=== PATIENT | male | born 1960 | race Caucasian/White ===

== ENCOUNTER → 2020-02-18 | Outpatient (CLI) | payer BC ==
--- NOTE | 2020-02-18 16:17 | RADIOLOGY REPORT (SQ) ---
EXAM DESCRIPTION: MRI LUMBAR SPINE WITHOUT IMAGES COMPLETED DATE/TIME: 02/18/2020 4:04 pm REASON FOR STUDY: M54.5 LOW BACK PAIN M54.5 LOW BACK PAIN COMPARISON: None. TECHNIQUE: Sagittal and Axial imaging includes T1, T2, STIR and gradient echo sequences. Coronal T2/ HASTE imaging. LIMITATIONS: Motion. Body habitus. FINDINGS: VISUALIZED UPPER ABDOMEN: Limited evaluation. No acute or suspicious findings suggested. SEGMENTATION: No transitional anatomy. The lowest well-developed disc space is labeled L5-S1. ALIGNMENT: Anatomic. VERTEBRAE: Intact. BONE MARROW: Normal. No marrow replacement or reactive changes. DISC SIGNAL: Desiccation L3- 4 through L5-S1. POSTERIOR ELEMENTS: Generally intact. No pars defect evident. HARDWARE: None in the spine. CORD AND CONUS: Normal in size and signal intensity. Conus at the appropriate level. SOFT TISSUES: No aortic aneurysm seen. No bulky retroperitoneal adenopathy or mass. No paraspinal mas s or fluid. L1-L2: No significant spinal stenosis or exit foraminal stenosis. L2-L3: No significant spinal stenosis or exit foraminal stenosis. L3-L4: Mild spinal stenosis due disc bulge and facet arthropathy. L4-L5: Moderate spinal stenosis due to small central disc herniation and facet arthropathy. Moderate neural foraminal narrowing bilaterally. L5-S1: Mild spinal stenosis due to small central disc herniation and facet arthropathy. Moderate merna ral foraminal narrowing bilaterally. LOWER THORACIC: Incompletely imaged. No stenosis seen. SACRUM: Visualized upper sacrum intact. OTHER: No other significant findings. IMPRESSION: Facet arthropathy. Small disc herniations at L4-5 and L5-S1. Moderate spinal stenosis L4-5. TECHNICAL DOCUMENTATION: JOB ID: [id number] 2010 [employer]- All Rights Reserved Reading location - IP/workstation name: [email or web address]
== END ==
LOC: RAD 15:00
PROVIDERS: ATTEND Orthopaedic Surgery
DX: M54.5 Low back pain (principal)
CPT/HCPCS: 72148

== ENCOUNTER 2020-09-12 09:26 | Emergency (ER) | payer BC ==
[2020-09-12] MEDS ORDERED: ONDANSETRON HCL INJ/PF 4 MG/2 ML SDV IV ONE ×2 (10:28→13:29)
[2020-09-12] MEDS ORDERED: MORPHINE SULFATE 10 MG/ML INJ IV ONE ×2 (10:28→13:28)
--- NOTE | 2020-09-12 10:30 | ER Document Report ---
ED Medical Screen (RME) - General Chief Complaint: Abdominal Pain Stated Complaint: ABDOMINAL PAIN Time Seen by Provider: 09/12/20 10:27 Primary Care Provider: POOL BILLINGS MD [Primary Care Provider] - Follow up as needed Mode of Arrival: Wheelchair Information source: Patient Notes: 60-year-old male patient presented to the emergency department with severe abdominal pain. Patient reports pain is in the upper abdomen and radiates straight through to his back. He states the pain is the worst pain he is ever had. He reports sudden onset last night at 10 PM. He reports associated diaphoresis but denies any fever, chills, nausea or vomiting. He does report having a similar pain about a week ago that resolved on its own. He states the pain has been constant since it began last night. Patient has a umbilical hernia but denies any previous abdominal surgeries. Charge nurse made aware of patient in department and request for immediate bed placement. I have greeted and performed a rapid initial assessment of this patient. A comprehensive ED assessment and evaluation of the patient, analysis of test results and completion of the medical decision making process will be conducted by additional ED providers. I have specifically instructed the patient or family members with the patient to immediately return to any nursing staff should anything change in the patient's condition or with their chief complaint. Physical Exam - Vital signs Vitals: Temp Pulse Resp BP Pulse Ox 97.4 F 71 20 139/97 H 96 09/12/20 09:36 09/12/20 09:36 09/12/20 09:36 09/12/20 09:36 09/12/20 09:36 Course - Vital Signs Vital signs: Temp Pulse Resp BP Pulse Ox 97.4 F 71 20 139/97 H 96 09/12/20 09:36 09/12/20 09:36 09/12/20 09:36 09/12/20 09:36 09/12/20 09:36 Doctor's Discharge - Discharge Referrals: POOL BILLINGS MD [Primary Care Provider] - Follow up as needed
[2020-09-12 10:59] LABS: ABSOLUTE BASOPHILS # (AUTO) 0.1 10^3/uL (0.0-0.2); ABSOLUTE LYMPHOCYTES (AUTO) 1.5 10^3/uL (0.5-4.7); ABSOLUTE MONOCYTES (AUTO) 0.8 10^3/uL (0.1-1.4); ABSOLUTE NEUT (AUTO) 7.3 10^3/uL (1.7-8.2); BASOPHILS % (AUTO) 1.2 % (0-2); EOSINOPHILS % (AUTO) 0.2 % (0-6); HEMATOCRIT 46.3 % (37.9-51.0); HEMOGLOBIN 15.8 g/dL (13.5-17.0); LYMPHOCYTES % (AUTO) 15.5 % (13-45); MEAN CORPUSCULAR HEMOGLOBIN 29.6 pg (27.0-33.4); MEAN CORPUSCULAR HGB CONC 34.2 g/dL (32.0-36.0); MEAN CORPUSCULAR VOLUME 87 fl (80-97); PLATELET COUNT 269 10^3/uL (150-450); RED BLOOD COUNT 5.35 10^6/uL (4.35-5.55); RED CELL DISTRIBUTION WIDTH 13.2 % (11.5-14.0); SEGMENTED NEUTROPHILS % (AUTO) 75.1 % (42-78); TOTAL CELLS COUNTED % (AUTO) 100 %; WHITE BLOOD COUNT 9.8 10^3/uL (4.0-10.5)
[2020-09-12 11:15] LABS: ALBUMIN 4.1 g/dL (3.5-5.0); ALKALINE PHOSPHATASE 105 U/L (38-126); ANION GAP 7 (5-19); ASPARTATE AMINO TRANSFERASE 31 U/L (17-59); BILIRUBIN,DIRECT 0.2 mg/dL (0.0-0.4); BILIRUBIN,TOTAL 0.4 mg/dL (0.2-1.3); BLOOD UREA NITROGEN 18 mg/dL (7-20); CALCIUM 9.2 mg/dL (8.4-10.2); CARBON DIOXIDE 29 mmol/L (22-30); CHLORIDE 103 mmol/L (98-107); GLUCOSE 134 mg/dL (75-110); TOTAL PROTEIN 7.3 g/dL (6.3-8.2)
[2020-09-12] MEDS ORDERED: NORMAL SALINE 1000 ML 1,000 ML IV ONE (11:26)
--- NOTE | 2020-09-12 12:50 | RADIOLOGY REPORT (SQ) ---
EXAM DESCRIPTION: CTA CHEST; CTA ABDOMEN/PELVIS W WO IMAGES COMPLETED DATE/TIME: 09/12/2020 9:19 am REASON FOR STUDY: UPPER ABD/BACK PAIN, EVAL FOR AORTIC DISSECTION COMPARISON: None. TECHNIQUE: CT scan of the chest, abdomen, pelvis performed with intravenous contrast using helical s el technique with dynamic intravenous contrast injection using aortic dissection protocol. Image s reviewed with lung, soft tissue, and bone windows. Reconstructed coronal and sagittal MPR images re viewed. All images stored on PACS. Advanced 3D imaging as volume rendering, MIPS, SSD performed? yes All CT scanners at this facility use dose modulation, iterative reconstruction, and/or weight based d osing when appropriate to reduce radiation dose to as low as reasonably achievable (ALARA). [facility]: Dose Right [facility]: CareDose [facility]: Dose Right [facility]: Teradose 4D [facility]: [employer] CONTRAST TYPE AND DOSE: contrast/concentration: Isovue 350.00 mmol/ml; Total Contrast Delivered: 100 .0 ml; Total Saline Delivered: 90.0 ml RENAL FUNCTION: Creatinine 0.68 LIMITATIONS: None. FINDINGS: AORTA AND VESSELS: No thoracic or abdominal aortic dissection or aneurysm. Arch vessels d emonstrate normal anatomic configuration. The celiac trunk, superior mesenteric and inferior mesente day arteries are patent. Bilateral renal arteries are patent. 2 renal arteries are noted on the lef t. Visualized pelvic runoff appears patent. There is some mild scattered atherosclerotic plaque pre dominantly in the lower abdominal aorta and common and internal iliac arteries. LUNGS AND PLEURA: Some mild bilateral dependent opacities probably representing atelectasis. Cannot exclude superimposed infection. There is a solid nodule in the right lower lobe superiorly measuring up to 1.0 cm (series 4, image 35). Calcified granulomas in the right upper lobe. No pleural effusi on or pneumothorax. HEART: No pericardial effusion. Trace coronary artery calcifications. PULMONARY ARTERIES: No central pulmonary embolism. The contrast bolus was optimized for the assessme nt of the pulmonary arteries. HILAR AND MEDIASTINAL STRUCTURES: Some scattered small and borderline lymph nodes are probably reacti ve. HARDWARE: None in the chest. THYROID AND OTHER SOFT TISSUES: No masses. No adenopathy. LIVER: Hepatic steatosis with focal sparing adjacent to the gallbladder. SPLEEN: Normal size. No focal lesions. PANCREAS: No masses. No significant calcifications. No adjacent inflammation or peripancreatic fluid collections. Pancreatic duct not dilated. GALLBLADDER: Cholelithiasis. ADRENAL GLANDS: No significant masses or asymmetry. RIGHT KIDNEY AND URETER: No mass, calculi or urinary tract obstruction. LEFT KIDNEY AND URETER: No mass, calculi or urinary tract obstruction. RETROPERITONEUM: No retroperitoneal adenopathy, hemorrhage or masses. BOWEL AND PERITONEAL CAVITY: No masses or inflammatory changes. No free fluid or peritoneal masses. Colon diverticulosis without diverticulitis. Much of the bowel is under distended, degrading evaluat ion of wall thickness. APPENDIX: Normal. PELVIS: No mass. Urinary bladder is unremarkable. ABDOMINAL WALL: Multiple fat containing ventral hernias. BONY STRUCTURES: No significant or acute findings. 3-D IMAGING: Confirms the above findings. OTHER: No other significant finding. IMPRESSION: 1. No aortic aneurysm or dissection. 2. Some mild bilateral opacities probably represent atelectasis, though superimposed infection is no t excluded. 3. Right lower lobe solid pulmonary nodule. Recommend follow-up chest CT in [address] and b iopsy could also be considered. 4. Hepatic steatosis. 5. Cholelithiasis. 6. Colon diverticulosis. COMMENT: FLEISCHNER CRITERIA FOR FOLLOW-UP OF PULMONARY NODULES Incidentally detected new nodules in persons 35 or older. HIGH RISK: History of smoking or other known risk factors. >8 mm single solid nodule: LOW and HIGH RISK: consider CT, PET/CT or biopsy at 3 mo. TECHNICAL DOCUMENTATION: JOB ID: [id number] Quality ID # [id number]: Final reports with documentation of one or more dose reduction techniques (e.g., Au tomated exposure control, adjustment of the mA and/or kV according to patient size, use of iterative reconstruction technique) 2010 [employer]- All Rights Reserved Reading location - IP/workstation name: [email or web address]
--- NOTE | 2020-09-12 13:23 | RADIOLOGY REPORT (SQ) ---
EXAM DESCRIPTION: U/S ABDOMEN COMPLETE W/DOPPLER IMAGES COMPLETED DATE/TIME: 09/12/2020 1:05 pm REASON FOR STUDY: abd pain/radiates to back COMPARISON: None. TECHNIQUE: Dynamic and static grayscale images acquired of the abdomen and recorded on PACS. Additio nal selected color Doppler and spectral images recorded. Note: Exam does not meet criteria for a complete duplex/doppler study LIMITATIONS: Study limited due to acoustical interference from fat or from air in the bowel. FINDINGS: PANCREAS: Obscured. LIVER: Echotexture is coarse with increased echogenicity consistent with fatty infiltration. LIVER VASCULATURE: Normal directional flow of the main portal vein and hepatic veins. GALLBLADDER: Gallstone(s). No pericholecystic fluid. No wall thickening. ULTRASOUND-DETECTED COURTNEY'S SIGN: Negative. INTRAHEPATIC DUCTS AND COMMON DUCT: CBD and intrahepatic ducts normal caliber. No filling defects. INFERIOR VENA CAVA: Normal flow. AORTA: No aneurysm. RIGHT KIDNEY: Normal size. Normal echogenicity. No solid or suspicious masses. No hydronephros is. No calcifications. LEFT KIDNEY: Normal size. Normal echogenicity. No solid or suspicious masses. No hydronephrosi s. No calcifications. SPLEEN:Normal size. No solid masses. PERITONEAL AND PLEURAL SPACES: No ascites or effusions. OTHER: No other significant finding. IMPRESSION: Cholelithiasis. No evidence of acute cholecystitis. TECHNICAL DOCUMENTATION: JOB ID: [id number] 2010 [employer]- All Rights Reserved Reading location - IP/workstation name: [email or web address]
[2020-09-12 13:37] LABS: APPEARANCE,URINE CLEAR; BILIRUBIN,URINE NEGATIVE (NEGATIVE); COLOR,URINE YELLOW; GLUCOSE, URINE NEGATIVE (NEGATIVE); KETONES,URINE NEGATIVE (NEGATIVE); LEUKOCYTE ESTERASE,URINE NEGATIVE (NEGATIVE); NITRITE,URINE NEGATIVE (NEGATIVE); PROTEIN,URINE NEGATIVE (NEGATIVE); UROBILINOGEN,URINE NEGATIVE mg/dL (<2.0)
[2020-09-12 13:43] LABS: URINE SPECIFIC GRAVITY > 1.060
[2020-09-12 13:51] LABS: URINE AMPHETAMINES SCREEN NEGATIVE; URINE BARBITURATES SCREEN NEGATIVE; URINE BENZODIAZEPINES SCREEN NEGATIVE; URINE COCAINE SCREEN NEGATIVE; URINE METHADONE SCREEN NEGATIVE; URINE PHENCYCLIDINE SCREEN NEGATIVE
[2020-09-12 13:56] LABS: URINE MARIJUANA (THC) SCREEN UNCONFIRMED POSITIVE
--- NOTE | 2020-09-12 14:32 | ER Document Report ---
Entered by WILMA ESCOBEDO SCRIBE 09/12/20 1058 Acting as scribe for:JESUS PEREZ MD ED General - General Chief Complaint: Abdominal Pain Stated Complaint: ABDOMINAL PAIN Time Seen by Provider: 09/12/20 10:27 Primary Care Provider: POOL BILLINGS MD [ACTIVE STAFF] - Follow up as needed Mode of Arrival: Wheelchair Information source: Patient Notes: This 60 year old male patient presents to the emergency department today with complaints of upper abdominal pain that radiates through to his back. Patient states this has occurred before 4-5 months ago and a week ago, resolving by itself without visiting his physician. Patient reports a MRI around 4-5 months ago for his hernia, told he has gallstones, and cannot give any details. Patient denies surgical history, or history of DM, HTN, heart attacks, or strokes. Patient reports history of sciatic nerve problems to his bilateral lower extremities, visits a Chiropractor, and visited pain management but was told he had to lose weight to be accepted. Patient states he does not take any regular medications, reports history of high cholesterol, and only takes a daily aspirin. Denies nausea, vomiting or diarrhea, and last bowel movement was today. Patient states he took a oxycodone around 9.5 hours [employer] that he had left over from his chronic back pain. - Related Data Allergies/Adverse Reactions: No Known Allergies Allergy (Verified 09/12/20 10:55) Past Medical History - General Information source: Patient - Social History Smoking Status: Never Smoker Cigarette use (# per day): No Lives with: Family Family History: Reviewed & Not Pertinent - Past Medical History Cardiac Medical History: Reports: Hx Hypercholesterolemia Denies: Hx Heart Attack, Hx Hypertension Neurological Medical History: Denies: Hx Cerebrovascular Accident Endocrine Medical History: Denies: Hx Diabetes Mellitus Type 1, Hx Diabetes Mellitus Type 2 Past Surgical History: Reports: None Review of Systems - Review of Systems Constitutional: No symptoms reported EENT: No symptoms reported Cardiovascular: No symptoms reported Respiratory: No symptoms reported Gastrointestinal: See HPI, Abdominal pain, Last bowel movement - today. denies: Diarrhea, Nausea, Vomiting Genitourinary: No symptoms reported Male Genitourinary: No symptoms reported Musculoskeletal: No symptoms reported Skin: No symptoms reported Hematologic/Lymphatic: No symptoms reported Neurological/Psychological: No symptoms reported -: Yes All other systems reviewed and negative Physical Exam - Vital signs Vitals: Temp Pulse Resp BP Pulse Ox 97.4 F 71 20 139/97 H 96 09/12/20 09:36 09/12/20 09:36 09/12/20 09:36 09/12/20 09:36 09/12/20 09:36 - General Notes: Alert and talking. Mild to moderate distress. - HEENT Head: Normocephalic, Atraumatic Eyes: Normal Pupils: PERRL - Respiratory Respiratory status: No respiratory distress Chest status: Nontender Breath sounds: Normal Chest palpation: Normal - Cardiovascular Rhythm: Regular Heart sounds: Normal auscultation, S1 appreciated, S2 appreciated Murmur: No - Abdominal Notes: Abdomen is distended, but appears to be chronic. Normal active bowel sounds. Tenderness with palpation to the mid periumbilical region. Ventral hernia to this region. - Extremities General upper extremity: Normal inspection General lower extremity: Normal inspection, Nontender. No: Edema - Neurological Neuro grossly intact: Yes Cognition: Normal Orientation: AAOx4 Betsey Coma Scale Eye Opening: Spontaneous [place] Coma Scale Verbal: Oriented Betsey Coma Scale Motor: Obeys Commands [place] Coma Scale Total: 15 Speech: Normal Sensory: Normal - Psychological Associated symptoms: Normal affect, Normal mood - Skin Skin Temperature: Warm Skin Moisture: Dry Skin Color: Normal Course - Re-evaluation Re-evalutation: 09/12/20 14:20 Patient received IV morphine for abdominal pain. Discussed patient's results with does not risk disclosed needing life-threatening or surgical emergency need. Patient does have ventral hernias which was which was not a new finding. Patient also has gallstones again not a new finding but there is no evidence for acute cholecystitis. Patient does have a pulmonary nodule that is incidental and again patient was already aware that had pulmonary nodule. Because he mentions some asbestosis exposure in the past. - Vital Signs Vital signs: Temp Pulse Resp BP Pulse Ox 97.4 F 71 15 154/82 H 97 09/12/20 09:36 09/12/20 09:36 09/12/20 13:01 09/12/20 13:01 09/12/20 13:01 09/12/20 14:21 Vital signs stable. - Laboratory Results Result Diagrams: 09/12/20 10:38 09/12/20 10:38 Laboratory Results Interpreted: 09/12/20 09/12/20 10:38 13:05 Glucose 134 H Urine Ascorbic Acid 20 H Laboratories unremarkable 09/12/20 14:22 Laboratories. Critical Laboratory Results Reviewed: No Critical Results - Radiology Results Radiology Results Interpreted: 09/12/20 14:22 Abdomen/Pelvis CTA 09/12/20 10:28 IMPRESSION: 1. No aortic aneurysm or dissection. 2. Some mild bilateral opacities probably represent atelectasis, though superimposed infection is not excluded. 3. Right lower lobe solid pulmonary nodule. Recommend follow-up chest CT in [address] and biopsy could also be considered. 4. Hepatic steatosis. 5. Cholelithiasis. 6. Colon diverticulosis. Chest/Abdomen CTA 09/12/20 10:28 IMPRESSION: 1. No aortic aneurysm or dissection. 2. Some mild bilateral opacities probably represent atelectasis, though superimposed infection is not excluded. 3. Right lower lobe solid pulmonary nodule. Recommend follow-up chest CT in [address] and biopsy could also be considered. 4. Hepatic steatosis. 5. Cholelithiasis. 6. Colon diverticulosis. Abdomen Ultrasound 09/12/20 11:24 IMPRESSION: Cholelithiasis. No evidence of acute cholecystitis. Patient had an abdominal/pelvis CTA and the impression shows no aortic aneurysm or dissection opacities and or representing atelectasis in both lungs. Right lower lobe solid nodule is recommended patient follow-up with his primary care doctor regarding further management and monitoring of this recommended he follow-up within 3 months and also have consideration for a biopsy. Cholelithiasis without cholecystitis hepatic steatosis and colon diverticulosis. Abdominal ultrasound shows cholelithiasis but no evidence of any acute cholecystitis. Critical Radiology Results Reviewed: No Critical Results - EKG Interpretation by Me Additional EKG results interpreted by me: 09/12/20 14:24 Twelve-lead EKG shows a normal sinus rhythm rate of 72 PACs noted but no acute ST changes NH interval within normal range QRS within normal range and QT interval within normal range normal axis no evidence for STEMI. Discharge - Discharge Clinical Impression: Ventral hernia with obstruction, without gangrene, Cholelithiasis, Abdominal pain, History of sciatica Disposition: HOME, SELF-CARE Instructions: Abdominal Pain ([facility]), Oral Narcotic Medication ([facility]) Additional Instructions: Gallbladder Disease Your evaluation shows evidence of gallbladder disease. The gallbladder is a pouch under the liver which stores bile. Stones, infection, or irritation of the gallbladder cause attacks of pain. Certain foods -- fats in particular -- may provoke attacks. The usual treatment for gallbladder disease is surgical removal of the ga llbladder -- called a cholecystectomy. You will be referred to a physician qualified to advise you on the best treatment for your problem. Hospitalization is not necessary. Take clear liquids only until you are painfree. After that, you should stay on a low-fat diet, with frequent SMALL meals. Call the doctor or return at once if you develop severe pain, repeated vomiting, fever, or jaundice (a yellow color in the skin and whites of the eyes). Recommend you follow-up with a surgeon regarding further evaluation of your gallbladder disease. Also you should continue as you have been instructed to take Tylenol and ibuprofen along with your pain narcotic medication for better control. Also follow-up with your orthopedic doctor regarding his sciatica. Prescriptions: Oxycodone HCl/Acetaminophen [Oxycodone-Acetaminophen 10-325] 1 each PO TID PRN 3 Days #9 tablet PRN Reason: For Pain Scale 4-5 Ondansetron [Zofran Odt 4 mg Tablet] 1 - 2 tab PO Q4H PRN #15 tab.rapdis PRN Reason: For Nausea/Vomiting Referrals: POOL BILLINGS MD [ACTIVE STAFF] - Follow up as needed I personally performed the services described in the documentation, reviewed and edited the documentation which was dictated to the scribe in my presence, and it accurately records my words and actions.
[2020-09-12 14:55] VITALS: BP 150/90
--- NOTE | 2020-09-12 18:48 | EKG REPORT ---
SEVERITY:- ABNORMAL ECG - SINUS RHYTHM MULTIPLE ATRIAL PREMATURE COMPLEXES : Confirmed by: Freedom Campbell MD 12-Sep-2020 18:47:57
== END 2020-09-12 15:07 | disposition home or self-care (01) ==
LOC: ER 09:26
DX: K43.6 Other and unspecified ventral hernia with obstruction, without gangrene (principal); K80.20 Calculus of gallbladder without cholecystitis without obstruction; K76.0 Fatty (change of) liver, not elsewhere classified; K57.30 Diverticulosis of large intestine without perforation or abscess without bleeding; R91.1 Solitary pulmonary nodule; R14.0 Abdominal distension (gaseous); Z79.82 Long term (current) use of aspirin
CPT/HCPCS: 93005; 99285; 96361; 96374; 96375; 86900; 86901; 36415; 86850; 83605; 83690; 85025; 85730; 80053; 81001; 84484; 80307; 76700; 93976; 71275; 74174; 93010; J2270; J2405; J7030